=== PATIENT | female | born 1995 | race Hispanic/Latino ===

== ENCOUNTER 2019-05-17 17:44 | Inpatient (IN) ==
--- NOTE | 2019-05-17 18:29 | PROVIDER DOCUMENTATION ---
This chart was entered by Shelby Medina Scribe, acting as scribe for Danilo Barahona MD. HPI-Female /OB/Breast - General Chief Complaint: OB-Active Labor Stated Complaint: 9MO / ABD PAIN Time Seen by Provider: 05/17/19 18:28 Allergies/Adverse Reactions: Patient Allergies Allergy/AdvReac Type Severity Reaction Status Date / Time No Known Allergies Allergy Verified 05/17/19 18:00 Home Medications: Home Medication List Medication Instructions Recorded Confirmed Last Taken Type NK [No Home Medications] 05/17/19 05/17/19 Unknown History - History of Present Illness-Female /OB Nature of Presenting Problem: Pt is a 23 yof who presents to the ED 9mo . Pt states that she had vaginal bleeding and abdominal pain. Pt states that her water broke at 11am. external vaginal exam - no noted. Does patient report she is ?: Yes Location of complaint: reports: other (abdominal) Radiation: reports: none Quality of Pain: reports: sharp Severity in ED: reports: moderate Onset/Duration: reports: this morning Timing: reports: still present, changing over time Context/Activities at Onset: reports: other (water broke) Vaginal Symptoms: reports: other (bleeding) Vaginal Bleeding Amount: Small/Light Urinary Symptoms: reports: no symptoms Related Symptoms: reports: vaginal fluid leakage, uterine contractions , vaginal bleeding, abdominal pain Leakage of Fluid: mild Sexual intercourse history: reports: Not Active Contraception: reports: none Modifying Factors: improves with: nothing Associated Symptoms: reports: other (vaginal bleeding abdominal pain) Similar Symptoms Previously?: No Recently seen or treated by another doctor?: Yes - LMP/ History Menstrual Status: currently Prior Delivery: vaginal Weeks/Months: 40 Contractions/Pelvic Pain: reports: weak Review of Systems - Adult - REVIEW OF SYSTEMS - ADULT Constitutional: reports: no symptoms reported Eyes: reports: no symptoms reported Ears, Nose, Mouth & Throat: reports: no symptoms reported Cardiovascular: reports: no symptoms reported Respiratory: reports: no symptoms reported Gastrointestinal: reports: see HPI, abdominal pain Genitourinary: reports: see HPI, other (vaginal bleeding) Musculoskeletal: reports: no symptoms reported Integumentary: reports: no symptoms reported Neurological: reports: no symptoms reported Psychiatric: reports: no symptoms reported Endocrine: reports: no symptoms reported Hematologic/Lymphatic: reports: no symptoms reported Allergic/Immunologic: reports: no symptoms reported All Other Systems: Reviewed and Negative Past History - Adult - PAST MEDICAL HISTORY-ADULT Review of Records: reports: Old Records Reviewed, Nursing Assessment Review, Medications Reviewed, Social history reviewed & non-contributory. Major Childhood Illnesses: reports: denies history Cardiovascular: reports: denies history Respiratory: reports: denies history Gastrointestinal: reports: denies history Obstetrical/Gynecological: reports: denies history Genitourinary: reports: denies history Musculoskeletal: reports: denies history Neurological: reports: denies history Endocrine/Immune: reports: denies history Other Conditions: reports: denies history - IMMUNIZATION STATUS Childhood Immunizations: See Nurse Assessment Flu Vaccine: See Nurse Assessment - FAMILY HISTORY Family History: reviewed, not pertinent - SOCIAL HISTORY Smoking: non-smoker Substance Use: denies Living Situation: family Physical Exam-General - PHYSICAL EXAM-ADULT Initial Vital Signs Reviewed: Yes - CONSTITUTIONAL General Appearance: alert, no apparent distress - EYES Eyes: PERRL/EOMI, pink conjunctivae - HEAD, EARS, NOSE, MOUTH & THROAT HENMT: normocephalic/atraumatic, moist mucous membranes - NECK Neck: non-tender, full range of motion, supple, normal inspection - RESPIRATORY Respiratory: chest non-tender, lungs clear, normal breath sounds. negative: mantel craftsman ckles, wheezing - CARDIOVASCULAR Cardiovascular: normal peripheral pulses, regular rate, rhythm. negative: bradycardia, tachycardia - GASTROINTESTINAL (ABDOMEN) Abdominal Exam: normal bowel sounds, non tender, soft. negative: guarding, rebound - GENITOURINARY Female Genitalia/Pelvic Exam: external exam normal (no ). negative: active bleeding - MUSCULOSKELETAL Back Exam: normal inspection Extremity: normal range of motion, non-tender - SKIN Integumentary: normal color, normal turgor, warm/dry. negative: ecchymosis, erythema - NEUROLOGIC Neurologic: grossly normal - PSYCHIATRIC Psych/Mental Status: normal mood/affect, normal thought content, normal thought process, oriented x 3 Progress - PLAN OF CARE/RESULTS Progress/Plan/Lab Results: Vital Signs - 8 hr 05/17/19 17:53 05/17/19 18:04 Temperature 99.2 F Pulse Rate 94 H 90 Respiratory Rate 18 18 Blood Pressure 142/97 115/100 O2 Sat by Pulse Oximetry 99 97 Departure - Departure Date of Disposition Decision: 05/17/19 Time of Disposition Decision: 18:27 DIAGNOSIS: and not yet delivered in third trimester Disposition: [facility] 02 Certified Medical Emergency: Emergent Condition: Stable Referrals and Follow-Ups: None,PCP [Primary Care Provider] - - Critical Care Note This patient required my direct & personal management of CC.: No Attestation - Physician/ FRANKY Attestation Patient care was provided by Advanced Practice Provider:: No The physician spent face to face time with patient:: Yes Advanced Practice Provider documentation review:: Supervising physician onsite and consulted in the evaluation and care of this patient. The physician did have a face to face encounter with the patient. This chart was documented by the indicated scribe, (Shelby Medina Scribe) and accurately reflects the services I performed and decisions made by me, Danilo Baarhona MD, as attested by the provider's signature.
[2019-05-17] MEDS ORDERED: LR 500 ML IV ONE (18:51)
[2019-05-17] MEDS ORDERED: PEPCID IV PRN (18:51)
[2019-05-17] MEDS ORDERED: TYLENOL PO PRN (18:51)
[2019-05-17] MEDS ORDERED: REGLAN PO ONE (18:51)
[2019-05-17] MEDS ORDERED: PEPCID PO PRN (18:51)
[2019-05-17] MEDS ORDERED: ZOFRAN IV PRN (18:51)
[2019-05-17] MEDS ORDERED: PEPCID PO ONE (18:51)
[2019-05-17] MEDS ORDERED: KEFZOL 1 GM/D5W 1 GM/50 ML IVPB IV PRN (18:51)
[2019-05-17] MEDS ORDERED: AMPICILLIN 2 GM in NS 100 ML IV ONE (18:56)
[2019-05-17] MEDS ORDERED: SODIUM CHLORIDE 0.9% INJ SCH (19:00)
[2019-05-17] MEDS ORDERED: PITOCIN 30 UNITS/NS 30 UNIT/500 ML IV.SOLN IV SCH (19:00)
[2019-05-17] MEDS ORDERED: LR 1,000 ML IV SCH (19:00)
[2019-05-17 19:21] LABS: URINE SOURCE VOIDED
[2019-05-17 19:29] LABS: BASO# 0.03 X1000 (0.0-0.2); BASO% 0.3 % (0.0-0.8); EOS# 0.16 X1000 (0.0-0.7); EOS% 1.9 % (0.0-10.0); HEMOGLOBIN 11.3 g/dL (12.0-16.0); LYMPH# 2.45 X1000 (1.2-3.4); LYMPH% 28.4 % (20.5-51.1); MCH 27.1 PG (27-31); MCHC 32.3 g/dL (33-37); MCV 83.9 FL (81-99); MONO# 0.36 X1000 (0.11-0.59); MONO% 4.2 % (1.7-9.3); NEUT# 5.64 X1000 (1.4-6.5); NEUT% 65.2 % (42.2-75.2); PLT 127 X1000 (130-400); RBC 4.17 XMIL (4.2-5.4); RDW 15.4 % (11.5-14.5); WBC 8.64 X1000 (4.8-10.8)
[2019-05-17 19:30] LABS: BILIRUBIN URINE NEGATIVE (NEGATIVE); BLOOD URINE MODERATE (NEGATIVE); CLARITY SLIGHTLY CLOUDY (CLEAR); COLOR YELLOW; GLUCOSE URINE NEGATIVE (NEGATIVE); KETONE URINE NEGATIVE (NEGATIVE); LEUKOCYTES URINE SMALL (NEGATIVE); NITRITE URINE NEGATIVE (NEGATIVE); PROTEIN URINE NEGATIVE (NEGATIVE)
[2019-05-17 19:36] LABS: UR AMPHETAMINES QUAL NONE DETECTED (NONE DETECT); UR BARBITUATES QUAL NONE DETECTED (NONE DETECT); UR BENZODIAZEPIN QUAL NONE DETECTED (NONE DETECT); UR CANNABINOIDS QUAL NONE DETECTED (NONE DETECT); UR COCAINE QUAL NONE DETECTED (NONE DETECT); UR METHADONE QUAL NONE DETECTED (NONE DETECT); UR OPIATES QUAL NONE DETECTED (NONE DETECT); UR OXYCODONE QUAL NONE DETECTED (NONE DETECT); UR PCP QUAL NONE DETECTED (NONE DETECT)
--- NOTE | 2019-05-17 19:45 | H&P REVIEW ---
H&P Update Document any changes: H and P done Dictation # [id number]
[2019-05-17 19:52] LABS: LARGE PLATELETS OCCASIONAL; LYMPHS 39 % (21-51); MONO 6 % (1-9); SEGS 54 % (42-75)
[2019-05-17 19:55] LABS: RPR NON-REACTIVE (NONREACTIVE); RUBELLA SCREEN IMMUNE (IMMUNE)
--- NOTE | 2019-05-17 20:02 | HISTORY AND PHYSICAL ---
HISTORY OF PRESENT ILLNESS: The patient is a 23-year-old G5, P4, 0-0-4 with an intrauterine at term, who presents to [facility] with complaint of labor. The patient reports that her water broke at 11 o'clock this morning. It was clear fluid. She presented to the hospital this afternoon when she started having back pain. She was transferred by ambulance to [facility] to Labor and Delivery. The patient reports she has no medical problems. She has had no care with this . She went to the clinic once just to get a due date, and her due date was 05/14/2019. That makes her 40 weeks and 5 days today. The patient reports she is having back pain but no nausea, no vomiting, no diarrhea. No constipation. Ruptured membranes, clear. REVIEW OF SYSTEMS: As above. PHYSICAL EXAM: GENERAL: The patient is awake, alert, oriented x3, in mild distress. HEENT: Patient is normocephalic, atraumatic. CARDIOVASCULAR: S1, S2 normal. LUNGS: Clear to auscultation. ABDOMEN: Good bowel sounds. Appears about 40 weeks . PELVIC EXAM: The patient is 5 cm dilated, 80% effaced, at 0 station. Adequate pelvic room for delivery. EXTREMITIES: Patient has no edema. heart rate tracing is reactive with baseline in the 130s. ASSESSMENT: Intrauterine at term. No care. GBS protocol effected. Ampicillin started. Expect vaginal delivery. A panel of labs was drawn. Discussion with patient regarding care done with an stapling machine operator on the phone, stapling machine operator #[id number]. Expect vaginal delivery. Discussion with patient regarding her care has been done, and she has signed consents with the assistance of the stapling machine operator. cc: Katty Mendoza MD
[2019-05-17 20:10] LABS: RAPID HIV PRESUMPTIVE NEGATIVE
[2019-05-17] MEDS ORDERED: NUBAIN IV PRN (20:50)
[2019-05-17] MEDS: STADOL IV PRN (20:55)
[2019-05-17] MEDS ORDERED: AMPICILLIN 1 GM in NS 50 ML IV SCH (22:56)
[2019-05-17] MEDS ORDERED: XYLOCAINE-MPF 1% INJ ONE (23:03)
[2019-05-17] MEDS ORDERED: MINERAL OIL PO ONE (23:03)
[2019-05-18] MEDS: PITOCIN 20 UNITS/NS 20 UNITS/1,000 ML IV.SOLN IV SCH ×2 (01:05→06:04)
[2019-05-18] MEDS: MOTRIN PO PRN ×2 (01:05→23:19)
--- NOTE | 2019-05-18 01:29 | OB/GYN PROGRESS NOTE ---
Progress Note OB - . Patient Problems: Current Active Problems Problem Status Onset and not yet delivered in third trimester Acute OB Progress Note: Vital Signs - 24 hr 05/17/19 17:53 05/17/19 18:04 05/17/19 19:00 Temperature 99.2 F 98.0 F Pulse Rate 94 H 90 91 H Respiratory Rate 18 18 18 Blood Pressure 142/97 115/100 115/88 O2 Sat by Pulse Oximetry 99 97 98 Laboratory Results - last 24 hr 05/17/19 05/17/19 05/17/19 18:00 18:30 18:30 WBC RBC Hgb Hct MCV MCH MCHC RDW Std Deviation Plt Count MPV Immature Gran % (Auto) Neut % (Auto) Lymph % (Auto) [place] % (Auto) Eos % (Auto) Baso % (Auto) Immature Gran # (Auto) Neut # (Auto) Lymph # (Auto) [place] # (Auto) Eos # (Auto) Baso # (Auto) Segmented Neutrophils Lymphocytes Monocytes Metamyelocytes Large Platelets Glucose Urine Source VOIDED Urine Color YELLOW Urine Clarity SLIGHTLY CLOUDY A Urine pH 6.0 Ur Specific [place] 1.020 Urine Protein NEGATIVE Urine Ketones NEGATIVE Urine Blood MODERATE A Urine Nitrite NEGATIVE Urine Bilirubin NEGATIVE Urine Urobilinogen 1.0 Urine WBC SMALL A Urine Glucose NEGATIVE Urine Opiates Screen NONE DETECTED Ur Oxycodone Screen NONE DETECTED Ur Methadone, Qual NONE DETECTED Ur Barbiturates Screen NONE DETECTED Ur Phencyclidine Scrn NONE DETECTED Ur Amphetamines Screen NONE DETECTED U Benzodiazepines Scrn NONE DETECTED Urine Cocaine Screen NONE DETECTED U Cannabinoids Screen NONE DETECTED RPR HIV 1&2 Antibody Rapid Rubella Immunity Screen Blood Type Blood Type Confirm O POSITIVE Antibody Screen 05/17/19 05/17/19 05/17/19 19:13 19:13 19:13 WBC 8.64 RBC 4.17 L Hgb 11.3 L Hct 35.0 L MCV 83.9 MCH 27.1 MCHC 32.3 L RDW Std Deviation 15.4 H Plt Count 127 L MPV Not Reportable Immature Gran % (Auto) 0.0 Neut % (Auto) 65.2 Lymph % (Auto) 28.4 [place] % (Auto) 4.2 Eos % (Auto) 1.9 Baso % (Auto) 0.3 Immature Gran # (Auto) 0.00 Neut # (Auto) 5.64 Lymph # (Auto) 2.45 [place] # (Auto) 0.36 Eos # (Auto) 0.16 Baso # (Auto) 0.03 Segmented Neutrophils 54 Lymphocytes 39 Monocytes 6 Metamyelocytes 1.0 Large Platelets OCCASIONAL Glucose 125 H Urine Source Urine Color Urine Clarity Urine pH Ur Specific [place] Urine Protein Urine Ketones Urine Blood Urine Nitrite Urine Bilirubin Urine Urobilinogen Urine WBC Urine Glucose Urine Opiates Screen Ur Oxycodone Screen Ur Methadone, Qual Ur Barbiturates Screen Ur Phencyclidine Scrn Ur Amphetamines Screen U Benzodiazepines Scrn Urine Cocaine Screen U Cannabinoids Screen RPR NON-REACTIVE HIV 1&2 Antibody Rapid PRESUMPTIVE NEGATIVE Rubella Immunity Screen IMMUNE Blood Type Blood Type Confirm Antibody Screen 05/17/19 19:13 WBC RBC Hgb Hct MCV MCH MCHC RDW Std Deviation Plt Count MPV Immature Gran % (Auto) Neut % (Auto) Lymph % (Auto) [place] % (Auto) Eos % (Auto) Baso % (Auto) Immature Gran # (Auto) Neut # (Auto) Lymph # (Auto) [place] # (Auto) Eos # (Auto) Baso # (Auto) Segmented Neutrophils Lymphocytes Monocytes Metamyelocytes Large Platelets Glucose Urine Source Urine Color Urine Clarity Urine pH Ur Specific [place] Urine Protein Urine Ketones Urine Blood Urine Nitrite Urine Bilirubin Urine Urobilinogen Urine WBC Urine Glucose Urine Opiates Screen Ur Oxycodone Screen Ur Methadone, Qual Ur Barbiturates Screen Ur Phencyclidine Scrn Ur Amphetamines Screen U Benzodiazepines Scrn Urine Cocaine Screen U Cannabinoids Screen RPR HIV 1&2 Antibody Rapid Rubella Immunity Screen Blood Type O POSITIVE Blood Type Confirm Antibody Screen NEGATIVE Delivery Note: Leelee was admitted as a 23 year old with an IUP at term without care who came in last evening after rupturing membranes earlier in the day. She presented with complaints of back pain and was noted to be about 4 cm dilated. She had antibiotic therapy for unknown GBS and had one dose of Stadol for pain. She progressed through labor and was augmented with pitocin. She delivered via . of a Live Viable male weighing 9lbs and 1 ounce with apgars of 9 and 10 at 1 and 5 minutes respectively. No nuchal cord, no vaginal lacerations, no cervical lacerations noted. Estimated blood loss of 300 cc. Placent delivered spontaneously and appears intact. Mother tolerated the procedure well and is in stable condition. in room with mother and is stable Delivery physician: Dr. Mendoza
[2019-05-18] MEDS ORDERED: BENADRYL IV PRN (01:38)
[2019-05-18] MEDS ORDERED: PERI MEDS (DERMOPLAST/NUPERCAINAL/TUCKS) MISC PRN (01:38)
[2019-05-18] MEDS ORDERED: PITOCIN IM PRN (01:38)
[2019-05-18] MEDS ORDERED: NORCO-5 PO PRN (01:38)
[2019-05-18] MEDS ORDERED: BENADRYL PO PRN (01:38)
[2019-05-18] MEDS ORDERED: BOOSTRIX VACCINE IM ONE (01:38)
[2019-05-18] MEDS ORDERED: CYTOTEC PO PRN (01:38)
[2019-05-18] MEDS ORDERED: AMBIEN PO PRN (01:38)
[2019-05-18] MEDS ORDERED: ATARAX PO PRN (01:38)
[2019-05-18] MEDS ORDERED: MINERAL OIL PO PRN (01:38)
[2019-05-18] MEDS ORDERED: XYLOCAINE-MPF 1% INJ PRN (01:38)
[2019-05-18] MEDS ORDERED: HYDROXYZINE IM PRN (01:38)
[2019-05-18] MEDS ORDERED: M-M-R II VACCINE SUBQ ONE (01:38)
[2019-05-18] MEDS ORDERED: PITOCIN 30 UNITS/NS 30 UNIT/500 ML IV.SOLN IV SCH (01:45)
[2019-05-18] MEDS ORDERED: HEMABATE IM ONE (02:39)
[2019-05-18] MEDS ORDERED: METHERGINE IM ONE (02:39)
[2019-05-18] MEDS ORDERED: CYTOTEC ONE (02:41)
[2019-05-18] MEDS: STADOL IV PRN (03:10)
[2019-05-18] MEDS ORDERED: NUBAIN IV PRN (03:10)
--- NOTE | 2019-05-18 03:34 | OB/GYN PROGRESS NOTE ---
Progress Note OB - . Patient Problems: Current Active Problems Problem Status Onset and not yet delivered in third trimester Acute OB Progress Note: Vital Signs - 24 hr 05/17/19 17:53 05/17/19 18:04 05/17/19 19:00 Temperature 99.2 F 98.0 F Pulse Rate 94 H 90 91 H Respiratory Rate 18 18 18 Blood Pressure 142/97 115/100 115/88 O2 Sat by Pulse Oximetry 99 97 98 Laboratory Results - last 24 hr 05/17/19 05/17/19 05/17/19 18:00 18:30 18:30 WBC RBC Hgb Hct MCV MCH MCHC RDW Std Deviation Plt Count MPV Immature Gran % (Auto) Neut % (Auto) Lymph % (Auto) [place] % (Auto) Eos % (Auto) Baso % (Auto) Immature Gran # (Auto) Neut # (Auto) Lymph # (Auto) [place] # (Auto) Eos # (Auto) Baso # (Auto) Segmented Neutrophils Lymphocytes Monocytes Metamyelocytes Large Platelets Glucose Urine Source VOIDED Urine Color YELLOW Urine Clarity SLIGHTLY CLOUDY A Urine pH 6.0 Ur Specific [place] 1.020 Urine Protein NEGATIVE Urine Ketones NEGATIVE Urine Blood MODERATE A Urine Nitrite NEGATIVE Urine Bilirubin NEGATIVE Urine Urobilinogen 1.0 Urine WBC SMALL A Urine Glucose NEGATIVE Urine Opiates Screen NONE DETECTED Ur Oxycodone Screen NONE DETECTED Ur Methadone, Qual NONE DETECTED Ur Barbiturates Screen NONE DETECTED Ur Phencyclidine Scrn NONE DETECTED Ur Amphetamines Screen NONE DETECTED U Benzodiazepines Scrn NONE DETECTED Urine Cocaine Screen NONE DETECTED U Cannabinoids Screen NONE DETECTED RPR HIV 1&2 Antibody Rapid Rubella Immunity Screen Blood Type Blood Type Confirm O POSITIVE Antibody Screen 05/17/19 05/17/19 05/17/19 19:13 19:13 19:13 WBC 8.64 RBC 4.17 L Hgb 11.3 L Hct 35.0 L MCV 83.9 MCH 27.1 MCHC 32.3 L RDW Std Deviation 15.4 H Plt Count 127 L MPV Not Reportable Immature Gran % (Auto) 0.0 Neut % (Auto) 65.2 Lymph % (Auto) 28.4 [place] % (Auto) 4.2 Eos % (Auto) 1.9 Baso % (Auto) 0.3 Immature Gran # (Auto) 0.00 Neut # (Auto) 5.64 Lymph # (Auto) 2.45 [place] # (Auto) 0.36 Eos # (Auto) 0.16 Baso # (Auto) 0.03 Segmented Neutrophils 54 Lymphocytes 39 Monocytes 6 Metamyelocytes 1.0 Large Platelets OCCASIONAL Glucose 125 H Urine Source Urine Color Urine Clarity Urine pH Ur Specific [place] Urine Protein Urine Ketones Urine Blood Urine Nitrite Urine Bilirubin Urine Urobilinogen Urine WBC Urine Glucose Urine Opiates Screen Ur Oxycodone Screen Ur Methadone, Qual Ur Barbiturates Screen Ur Phencyclidine Scrn Ur Amphetamines Screen U Benzodiazepines Scrn Urine Cocaine Screen U Cannabinoids Screen RPR NON-REACTIVE HIV 1&2 Antibody Rapid PRESUMPTIVE NEGATIVE Rubella Immunity Screen IMMUNE Blood Type Blood Type Confirm Antibody Screen 05/17/19 19:13 WBC RBC Hgb Hct MCV MCH MCHC RDW Std Deviation Plt Count MPV Immature Gran % (Auto) Neut % (Auto) Lymph % (Auto) [place] % (Auto) Eos % (Auto) Baso % (Auto) Immature Gran # (Auto) Neut # (Auto) Lymph # (Auto) [place] # (Auto) Eos # (Auto) Baso # (Auto) Segmented Neutrophils Lymphocytes Monocytes Metamyelocytes Large Platelets Glucose Urine Source Urine Color Urine Clarity Urine pH Ur Specific [place] Urine Protein Urine Ketones Urine Blood Urine Nitrite Urine Bilirubin Urine Urobilinogen Urine WBC Urine Glucose Urine Opiates Screen Ur Oxycodone Screen Ur Methadone, Qual Ur Barbiturates Screen Ur Phencyclidine Scrn Ur Amphetamines Screen U Benzodiazepines Scrn Urine Cocaine Screen U Cannabinoids Screen RPR HIV 1&2 Antibody Rapid Rubella Immunity Screen Blood Type O POSITIVE Blood Type Confirm Antibody Screen NEGATIVE Called in to assess patient for hemorrhage. On arrival there was a piece of placenta that had been expelled along with about 1 litre of blood. On examination the uterus was boggy and filled with blood. The blood was manually removed and the uterus cleared of all debris Methergine 0.2mg IM, Hemabate 250 mg IM, cytotec 1000mg placed rectally, Pitocin continuous since placental delivery. After clearing the uterus the fundus has remained firm. An tooth grinder was buzz thomas so we could inform the patient and her spouse of the hemorrhage and the medications that had been given. She has already signed consents for blood products if necessary. Discussed the possibility of going to the operating room for a procedure if necessary. Vital signs are stable after evacuation- Blood pressure 118/70 HR 93; O2 sats 98% on room air Bleeding has slowed to a minimum and fundus remains firm 20 minutes post evacuation. Will continue to monitor closely. CBC drawn - results pending
[2019-05-18 03:37] LABS: BASO# 0.04 X1000 (0.0-0.2); BASO% 0.2 % (0.0-0.8); EOS# 0.03 X1000 (0.0-0.7); EOS% 0.2 % (0.0-10.0); HEMATOCRIT 31.6 % (37.0-47.0); HEMOGLOBIN 10.1 g/dL (12.0-16.0); IMM GRAN# 0.05 X1000 (0.0-0.04); IMM GRAN% 0.3 % (0.0-0.5); LYMPH# 2.74 X1000 (1.2-3.4); LYMPH% 14.9 % (20.5-51.1); MCH 26.9 PG (27-31); MONO# 0.86 X1000 (0.11-0.59); MONO% 4.7 % (1.7-9.3); NEUT# 14.71 X1000 (1.4-6.5); NEUT% 79.7 % (42.2-75.2); PLT 149 X1000 (130-400); RBC 3.76 XMIL (4.2-5.4); RDW 15.2 % (11.5-14.5); WBC 18.43 X1000 (4.8-10.8)
[2019-05-18] MEDS ORDERED: KEFZOL 1 GM/D5W 1 GM/50 ML IVPB IV SCH (04:00)
[2019-05-18] MEDS: KEFZOL 2 GM/D5W 2 GM/50 ML IVPB IV SCH ×4 (04:14→21:14)
--- NOTE | 2019-05-18 09:08 | OB/GYN PROGRESS NOTE ---
Progress Note OB - . Patient Problems: Current Active Problems Problem Status Onset and not yet delivered in third trimester Acute OB Progress Note: Vital Signs - 24 hr 05/17/19 17:53 05/17/19 18:04 05/17/19 19:00 Temperature 99.2 F 98.0 F Pulse Rate 94 H 90 91 H Respiratory Rate 18 18 18 Blood Pressure 142/97 115/100 115/88 O2 Sat by Pulse Oximetry 99 97 98 05/18/19 01:30 PROJECT BUILDER 05/18/19 07:36 Temperature 98.2 F 98.1 F Pulse Rate 76 79 Respiratory Rate 18 18 Blood Pressure 125/56 118/69 O2 Sat by Pulse Oximetry 99 99 Laboratory Results - last 24 hr 05/17/19 05/17/19 05/17/19 18:00 18:30 18:30 WBC RBC Hgb Hct MCV MCH MCHC RDW Std Deviation Plt Count MPV Immature Gran % (Auto) Neut % (Auto) Lymph % (Auto) [place] % (Auto) Eos % (Auto) Baso % (Auto) Immature Gran # (Auto) Neut # (Auto) Lymph # (Auto) [place] # (Auto) Eos # (Auto) Baso # (Auto) Segmented Neutrophils Lymphocytes Monocytes Metamyelocytes Large Platelets Glucose Urine Source VOIDED Urine Color YELLOW Urine Clarity SLIGHTLY CLOUDY A Urine pH 6.0 Ur Specific [place] 1.020 Urine Protein NEGATIVE Urine Ketones NEGATIVE Urine Blood MODERATE A Urine Nitrite NEGATIVE Urine Bilirubin NEGATIVE Urine Urobilinogen 1.0 Urine WBC SMALL A Urine Glucose NEGATIVE Urine Opiates Screen NONE DETECTED Ur Oxycodone Screen NONE DETECTED Ur Methadone, Qual NONE DETECTED Ur Barbiturates Screen NONE DETECTED Ur Phencyclidine Scrn NONE DETECTED Ur Amphetamines Screen NONE DETECTED U Benzodiazepines Scrn NONE DETECTED Urine Cocaine Screen NONE DETECTED U Cannabinoids Screen NONE DETECTED RPR HIV 1&2 Antibody Rapid Rubella Immunity Screen Blood Type Blood Type Confirm O POSITIVE Antibody Screen 05/17/19 05/17/19 05/17/19 19:13 19:13 19:13 WBC 8.64 RBC 4.17 L Hgb 11.3 L Hct 35.0 L MCV 83.9 MCH 27.1 MCHC 32.3 L RDW Std Deviation 15.4 H Plt Count 127 L MPV Not Reportable Immature Gran % (Auto) 0.0 Neut % (Auto) 65.2 Lymph % (Auto) 28.4 [place] % (Auto) 4.2 Eos % (Auto) 1.9 Baso % (Auto) 0.3 Immature Gran # (Auto) 0.00 Neut # (Auto) 5.64 Lymph # (Auto) 2.45 [place] # (Auto) 0.36 Eos # (Auto) 0.16 Baso # (Auto) 0.03 Segmented Neutrophils 54 Lymphocytes 39 Monocytes 6 Metamyelocytes 1.0 Large Platelets OCCASIONAL Glucose 125 H Urine Source Urine Color Urine Clarity Urine pH Ur Specific [place] Urine Protein Urine Ketones Urine Blood Urine Nitrite Urine Bilirubin Urine Urobilinogen Urine WBC Urine Glucose Urine Opiates Screen Ur Oxycodone Screen Ur Methadone, Qual Ur Barbiturates Screen Ur Phencyclidine Scrn Ur Amphetamines Screen U Benzodiazepines Scrn Urine Cocaine Screen U Cannabinoids Screen RPR NON-REACTIVE HIV 1&2 Antibody Rapid PRESUMPTIVE NEGATIVE Rubella Immunity Screen IMMUNE Blood Type Blood Type Confirm Antibody Screen 05/17/19 05/18/19 19:13 03:29 WBC 18.43 H D RBC 3.76 L Hgb 10.1 L Hct 31.6 L MCV 84.0 MCH 26.9 L MCHC 32.0 L RDW Std Deviation 15.2 H Plt Count 149 MPV Not Reportable Immature Gran % (Auto) 0.3 Neut % (Auto) 79.7 H Lymph % (Auto) 14.9 L [place] % (Auto) 4.7 Eos % (Auto) 0.2 Baso % (Auto) 0.2 Immature Gran # (Auto) 0.05 H Neut # (Auto) 14.71 H Lymph # (Auto) 2.74 [place] # (Auto) 0.86 H Eos # (Auto) 0.03 Baso # (Auto) 0.04 Segmented Neutrophils Lymphocytes Monocytes Metamyelocytes Large Platelets Glucose Urine Source Urine Color Urine Clarity Urine pH Ur Specific [place] Urine Protein Urine Ketones Urine Blood Urine Nitrite Urine Bilirubin Urine Urobilinogen Urine WBC Urine Glucose Urine Opiates Screen Ur Oxycodone Screen Ur Methadone, Qual Ur Barbiturates Screen Ur Phencyclidine Scrn Ur Amphetamines Screen U Benzodiazepines Scrn Urine Cocaine Screen U Cannabinoids Screen RPR HIV 1&2 Antibody Rapid Rubella Immunity Screen Blood Type O POSITIVE Blood Type Confirm Antibody Screen NEGATIVE 23 yo G PPD#0 s/p with PPH, no PNC Patient seend and examined. Pain controlled. Normal lochia currently. s/p cytotec 1000mcg rectally, methergine 0.2mg IM x 1, and Hemabate 0.25mg IM x 1 for PPH. Patient did not require blood transfusion. Hgb at 0300 was 10.1. Plan to redraw CBC at noon. Physical Exam-General - PHYSICAL EXAM-ADULT Initial Vital Signs Reviewed: Yes - CONSTITUTIONAL General Appearance: appears well, alert, no apparent distress - EYES Eyes: PERRL/EOMI - RESPIRATORY Respiratory: lungs clear, normal breath sounds - CARDIOVASCULAR Cardiovascular: normal peripheral pulses, regular rate, rhythm - GASTROINTESTINAL (ABDOMEN) Abdominal Exam: normal bowel sounds, soft (ATTP, fundus firm/below umbilicus) - MUSCULOSKELETAL Extremity: normal range of motion Assessment/Plan - Assessment/Plan Assessment: 23 yo PPD#0 s/p at term with PPH, no PNC 1. HD stable, afebrile, VS WNL 2. Redraw CBC at noon 3. S/p cytotec, methergine, hemabate after delivery 4. Strict I/Os 5. Start Iron 325mg PO BID
[2019-05-18] MEDS: FERROUS SULFATE PO SCH ×2 (09:11→21:12)
[2019-05-18 12:01] LABS: BASO# 0.03 X1000 (0.0-0.2); BASO% 0.2 % (0.0-0.8); EOS# 0.05 X1000 (0.0-0.7); EOS% 0.4 % (0.0-10.0); HEMATOCRIT 24.4 % (37.0-47.0); HEMOGLOBIN 7.6 g/dL (12.0-16.0); IMM GRAN# 0.02 X1000 (0.0-0.04); IMM GRAN% 0.2 % (0.0-0.5); LYMPH# 3.25 X1000 (1.2-3.4); LYMPH% 26.1 % (20.5-51.1); MCH 26.5 PG (27-31); MCHC 31.1 g/dL (33-37); MONO# 0.72 X1000 (0.11-0.59); MONO% 5.8 % (1.7-9.3); MPV 13.8 FL (7.4-10.4); NEUT# 8.37 X1000 (1.4-6.5); NEUT% 67.3 % (42.2-75.2); PLT 117 X1000 (130-400); RBC 2.87 XMIL (4.2-5.4); WBC 12.44 X1000 (4.8-10.8)
[2019-05-18 20:18] LABS: HIV ANTIBODY SCREEN SEE COMMENTS
[2019-05-18] MEDS: PERICOLACE PO SCH (21:12)
[2019-05-19] MEDS: KEFZOL 2 GM/D5W 2 GM/50 ML IVPB IV SCH ×2 (04:05→11:13)
[2019-05-19 05:02] LABS: BASO# 0.04 X1000 (0.0-0.2); BASO% 0.5 % (0.0-0.8); EOS# 0.23 X1000 (0.0-0.7); HEMATOCRIT 19.3 % (37.0-47.0); IMM GRAN# 0.03 X1000 (0.0-0.04); IMM GRAN% 0.4 % (0.0-0.5); LYMPH# 3.51 X1000 (1.2-3.4); LYMPH% 45.7 % (20.5-51.1); MCH 26.7 PG (27-31); MCHC 31.1 g/dL (33-37); MCV 85.8 FL (81-99); MONO# 0.39 X1000 (0.11-0.59); MONO% 5.1 % (1.7-9.3); MPV 12.9 FL (7.4-10.4); NEUT# 3.48 X1000 (1.4-6.5); NEUT% 45.3 % (42.2-75.2); PLT 105 X1000 (130-400); RBC 2.25 XMIL (4.2-5.4); RDW 15.4 % (11.5-14.5); WBC 7.68 X1000 (4.8-10.8)
[2019-05-19] MEDS ORDERED: TYLENOL PO ONE (05:15)
[2019-05-19] MEDS ORDERED: BENADRYL PO ONE (05:15)
[2019-05-19] MEDS ORDERED: NS 1,000 ML IV SCH (05:45)
[2019-05-19 10:49] LABS: HEPATITIS B SURFACE ANTIGEN SEE COMMENTS
[2019-05-19] MEDS: FERROUS SULFATE PO SCH ×2 (10:50→20:31)
[2019-05-19 15:14] LABS: BASO# 0.04 X1000 (0.0-0.2); BASO% 0.5 % (0.0-0.8); EOS# 0.32 X1000 (0.0-0.7); EOS% 3.8 % (0.0-10.0); HEMATOCRIT 30.1 % (37.0-47.0); HEMOGLOBIN 9.7 g/dL (12.0-16.0); IMM GRAN# 0.04 X1000 (0.0-0.04); IMM GRAN% 0.5 % (0.0-0.5); LYMPH# 2.73 X1000 (1.2-3.4); LYMPH% 32.5 % (20.5-51.1); MCH 27.6 PG (27-31); MCHC 32.2 g/dL (33-37); MCV 85.8 FL (81-99); MONO# 0.38 X1000 (0.11-0.59); MONO% 4.5 % (1.7-9.3); MPV 13.4 FL (7.4-10.4); NEUT% 58.2 % (42.2-75.2); PLT 125 X1000 (130-400); RBC 3.51 XMIL (4.2-5.4); RDW 15.1 % (11.5-14.5); WBC 8.41 X1000 (4.8-10.8)
[2019-05-19] MEDS ORDERED: FLU VACCINE IM ONE (15:45)
[2019-05-19] MEDS: PERICOLACE PO SCH (20:31)
[2019-05-20] MEDS: MOTRIN PO PRN (00:08)
[2019-05-20 04:27] LABS: BASO# 0.03 X1000 (0.0-0.2); BASO% 0.4 % (0.0-0.8); EOS# 0.37 X1000 (0.0-0.7); EOS% 4.5 % (0.0-10.0); HEMATOCRIT 26.4 % (37.0-47.0); HEMOGLOBIN 8.5 g/dL (12.0-16.0); IMM GRAN# 0.03 X1000 (0.0-0.04); IMM GRAN% 0.4 % (0.0-0.5); LYMPH# 3.21 X1000 (1.2-3.4); LYMPH% 39.2 % (20.5-51.1); MCH 27.8 PG (27-31); MCHC 32.2 g/dL (33-37); MCV 86.3 FL (81-99); MONO# 0.42 X1000 (0.11-0.59); MONO% 5.1 % (1.7-9.3); MPV 13.3 FL (7.4-10.4); NEUT# 4.12 X1000 (1.4-6.5); NEUT% 50.4 % (42.2-75.2); PLT 127 X1000 (130-400); RBC 3.06 XMIL (4.2-5.4); RDW 14.9 % (11.5-14.5); WBC 8.18 X1000 (4.8-10.8)
--- NOTE | 2019-05-20 07:40 | OB/GYN PROGRESS NOTE ---
- Subjective Pt is PPD#2 s/p . Seens and examined. Currently w/o complaints. Ambulating and urinatwing without difficulty. Tolerating regular diet. Positive bottle feeding. Decreased lochia. course complicated by PPH and pt is s/p 2 units of pRBCs. Denies dizziness, sob, CP. OB Physical Exam Vital Signs - 8 hr 05/20/19 04:22 Temperature 97.3 F L Pulse Rate 85 Respiratory Rate 18 Blood Pressure 103/61 O2 Sat by Pulse Oximetry 98 - CONSTITUTIONAL General Appearance: appears well, alert, no apparent distress - RESPIRATORY Respiratory: lungs clear, normal breath sounds - CARDIOVASCULAR Cardiovascular: regular rate, rhythm - GASTROINTESTINAL (ABDOMEN) Abdominal Exam: non tender, soft (FF below umbilicus) - MUSCULOSKELETAL Extremity: non-tender, no pedal edema, no calf tenderness - PSYCHIATRIC Psych/Mental Status: normal mood/affect, oriented x 3 Active Medications Generic Name Dose Route Start Last Admin Trade Name Freq PRN Reason Stop Dose Admin Acetaminophen 650 mg 05/17/19 18:51 Tylenol PO Q4-6H PRN PRN Headache Hydrocodone Bitart/Acetaminophen 1 each 05/18/19 01:38 [employer]IST 05/18/19 09:11 [place]-5 PO 1 each Q3-4H PRN PRN Administration Pain (1-6 on Pain Scale) Benzocaine 1 each 05/18/19 01:38 [employer]IST 05/18/19 01:06 [employer]IST Gabriella Meds (Dermoplast/Nupercainal/Tucks) MISC 1 pkg 3-4XDAY PRN PRN Administration episiotomy/hemorrhoids Butorphanol Tartrate 2 mg 05/17/19 18:51 05/18/19 03:10 Stadol IV 2 mg PRN PRN Administration Pain Diphenhydramine HCl 12.5 mg 05/18/19 01:38 [employer]ER [employer]IST Benadryl IV Q4H PRN PRN Itching Diphenhydramine HCl 25 mg 05/18/19 01:38 OFFENDER [employer]IST Benadryl PO Q4H PRN PRN Itching Famotidine 40 mg 05/17/19 18:51 Pepcid PO Q12H PRN PRN GI upset or indigestion Famotidine 20 mg 05/17/19 18:51 Pepcid IV Q12H PRN PRN GI upset or indigestion Ferrous Sulfate 325 mg 05/18/19 09:00 05/19/19 20:31 Ferrous Sulfate PO 325 mg BID JENNIFER Administration Hydroxyzine HCl 50 mg 05/18/19 01:38 [employer]IST Hydroxyzine IM Q3-4H PRN PRN Nausea Hydroxyzine HCl 50 mg 05/18/19 01:38 [employer]ER [employer]IST Atarax PO Q3-4H PRN PRN Nausea Lactated Ringer's 1,000 mls @ 125 mls/hr 05/17/19 19:00 05/17/19 19:15 Lr IV 125 mls/hr .Q8H JENNIFER Administration Oxytocin/Sodium Chloride 30 unit in 500 mls @ 0 mls/hr 05/17/19 19:00 05/17/19 21:00 Pitocin 30 Units/Ns IV 2 mls/hr .Q0M JENNIFER Administration As Directed Oxytocin/Sodium Chloride 20 units in 1,000 mls @ 0 mls/hr 05/18/19 01:45 [employer]IST 05/18/19 06:04 Pitocin 20 Units/Ns IV 125 mls/hr .Q0M JENNIFER Administration As Directed Sodium Chloride 1,000 mls @ 0 mls/hr 05/19/19 05:45 Ns IV .Q0M JENNIFER As Directed Ibuprofen 800 mg 05/18/19 01:38 [employer]IST 05/20/19 00:08 Motrin PO 800 mg Q8H PRN PRN Administration cramping Lidocaine HCl 30 ml 05/18/19 01:38 [employer]ER [employer]IST Xylocaine-Mpf 1% INJ PRN PRN Perineal repair Mineral Oil 30 ml 05/18/19 01:38 [employer]ENDER [employer]IST Mineral Oil PO PRN PRN Perineal massage Misoprostol 800 microgm 05/18/19 01:38 [employer]IST Cytotec PO PRN PRN Severe bleeding Nalbuphine HCl 10 mg 05/18/19 03:10 Nubain IV Q3-4H PRN PRN Pain Ondansetron HCl 4 mg 05/17/19 18:51 05/17/19 20:55 Zofran IV 4 mg PRN PRN Administration Nausea Oxytocin 20 unit 05/18/19 01:38 [employer]IST Pitocin IM PRN PRN Severe bleeding Senna/Docusate Sodium 1 each 05/18/19 21:00 05/19/19 20:31 Pericolace PO 1 each QHS JENNIFER Administration Sodium Chloride 5 - 10 ml 05/17/19 19:00 Sodium Chloride 0.9% INJ DIRECTED JENNIFER Zolpidem Tartrate 10 mg 05/18/19 01:38 [employer] Ambien PO HS PRN PRN Sleep Laboratory Results - last 24 hr 05/17/19 05/17/19 05/17/19 18:30 19:13 19:13 WBC RBC Hgb Hct MCV MCH MCHC RDW Std Deviation Plt Count MPV Immature Gran % (Auto) Neut % (Auto) Lymph % (Auto) [place] % (Auto) Eos % (Auto) Baso % (Auto) Immature Gran # (Auto) Neut # (Auto) Lymph # (Auto) [place] # (Auto) Eos # (Auto) Baso # (Auto) Ur Chlamydia/GC DNA SEE COMMENTS Hep Bs Antigen SEE COMMENTS Blood Type O POSITIVE Antibody Screen NEGATIVE Crossmatch See Detail 05/19/19 05/20/19 15:00 04:14 WBC 8.41 8.18 RBC 3.51 L 3.06 L Hgb 9.7 L D 8.5 L Hct 30.1 L D 26.4 L MCV 85.8 86.3 MCH 27.6 27.8 MCHC 32.2 L 32.2 L RDW Std Deviation 15.1 H 14.9 H Plt Count 125 L 127 L MPV 13.4 H 13.3 H Immature Gran % (Auto) 0.5 0.4 Neut % (Auto) 58.2 50.4 Lymph % (Auto) 32.5 39.2 [place] % (Auto) 4.5 5.1 Eos % (Auto) 3.8 4.5 Baso % (Auto) 0.5 0.4 Immature Gran # (Auto) 0.04 0.03 Neut # (Auto) 4.90 4.12 Lymph # (Auto) 2.73 3.21 [place] # (Auto) 0.38 0.42 Eos # (Auto) 0.32 0.37 Baso # (Auto) 0.04 0.03 Ur Chlamydia/GC DNA Hep Bs Antigen Blood Type Antibody Screen Crossmatch - Assessment & Plan (1) Acute blood loss anemia Status: Suspected (2) hemorrhage Status: Resolved (3) Status post vaginal delivery Status: Resolved - Progress Note Disposition: 23yo PPD#2 s/p complicated by PPH\ -HD stable -s/p hemabate, cytotec, methergine and 2 units of pRBCs -con't ferrous sulfate BID -OOB to ambulation -regular diet -continue routine pp care -discussed control options, declined -plan for d/c home
[2019-05-20 08:20] VITALS: BP 110/67
[2019-05-20] MEDS: FERROUS SULFATE PO SCH (09:32)
== END 2019-05-20 10:10 | disposition home or self-care (01) | DRG 806 ==
LOC: P.ED 17:44 → EDSTATUS 18:29 → LD 18:30
PROVIDERS: ADMIT Obstetrics & Gynecology; ATTEND Obstetrics & Gynecology